=== PATIENT | female | born 1985 | race Caucasian/White ===

== ENCOUNTER 2018-03-31 02:01 | Emergency (ER) | payer BC ==
--- NOTE | 2018-03-31 02:20 | EDM.PDOC ---
ED HPI GENERAL MEDICAL PROBLEM - General Time Seen by Provider: 03/31/18 02:17 Source of Information: Reports: Patient History Limitations: Reports: No Limitations - History of Present Illness INITIAL COMMENTS - FREE TEXT/NARRATIVE: c/o possible retained tampon pt placed a tampon yesterday, then a 2nd one today, now not sure if she removed the first one h/o anxiety - Related Data Allergies Allergy/AdvReac Type Severity Reaction Status Date / Time No Known Allergies Allergy Verified 10/03/15 11:18 Home Meds: Home Meds Hydrochlorothiazide 25 mg PO DAILY 03/31/18 [History] ED ROS GENERAL - Review of Systems Review Of Systems: See Below Constitutional: Reports: No Symptoms HEENT: Reports: No Symptoms Respiratory: Reports: No Symptoms Cardiovascular: Reports: No Symptoms Endocrine: Reports: No Symptoms GI/Abdominal: Reports: No Symptoms : Reports: No Symptoms Musculoskeletal: Reports: No Symptoms Skin: Reports: No Symptoms Neurological: Reports: No Symptoms Psychiatric: Reports: No Symptoms Hematologic/Lymphatic: Reports: No Symptoms Immunologic: Reports: No Symptoms ED EXAM, RENAL/ - Physical Exam Exam: See Below Exam Limited By: No Limitations General Appearance: Alert, WD/WN Head: Atraumatic Neck: Normal Inspection, Supple Respiratory/Chest: No Respiratory Distress, Lungs Clear Cardiovascular: Diastolic Murmur GI/Abdominal: Soft, Non-Tender (Female) Exam: Other (bimanual exam with nl cx and empty vault, no CMT, no retained f.b. noted) Back Exam: Normal Inspection Extremities: Normal Inspection, Normal Range of Motion, Non-Tender, No Pedal Edema Neurological: Alert, Oriented, CN II-XII Intact, Normal Cognition, No Motor/ Sensory Deficits Skin Exam: Warm, Dry, Intact, Normal Color, No Rash Lymphatic: No Adenopathy Course - Vital Signs Last Recorded V/S: Last Vital Signs Temp 36.8 C 03/31/18 02:05 Pulse 108 H 03/31/18 02:05 Resp 20 03/31/18 02:05 BP 160/110 H 03/31/18 02:05 Pulse Ox 99 03/31/18 02:05 Departure - Departure Time of Disposition: 02:57 Disposition: Home, Self-Care 01 Condition: Good Clinical Impression: Anxiety - Discharge Information Referrals: Ju Antony NP [Primary Care Provider] - Additional Instructions: Record your blood pressure several times a week and take them in and show them to your doctor. See your doctor in the next week. Continue your regular activities.
== END 2018-03-31 03:10 | disposition home or self-care (01) ==
LOC: FB.ED 02:01
DX: F41.9 Anxiety disorder, unspecified (principal); Z79.899 Other long term (current) drug therapy
CPT/HCPCS: 99283